=== PATIENT | male | born 1990 | race Caucasian/White ===

== ENCOUNTER 2018-04-06 09:47 | Emergency (ER) | payer MEDICARE, OTHER ==
[2018-04-06] MEDS ORDERED: SODIUM CHLORIDE 0.9% 500 ML IV STA (10:38)
[2018-04-06] MEDS ORDERED: ONDANSETRON 4 MG/2 ML VIAL IVP STA ×3 (10:38→14:20)
--- NOTE | 2018-04-06 10:40 | ED ---
General Adult HPI - General Chief complaint: Nausea/Vomiting/Diarrhea Stated complaint: nausea, vomiting Time Seen by Provider: 04/06/18 10:00 Source: patient, RN notes reviewed Mode of arrival: EMS - History of Present Illness Initial comments: This is a 27-year-old male who presents emergency Department with his father. Father does most of the history. Father states this morning he was very tired and was difficult to get him up to go to the doctor's office when he got to the doctor's office she started vomiting and the doctor wanted to be brought into the emergency department. Patient himself states she's nauseated and feels lightheaded when he stands up. Patient states he has no real abdominal pain or chest pain patient denies any difficulty breathing shortness of breath. Patient denies any fever chills. Patient denies headache patient states he is lightheaded when he tries to stand. Patient denies any recent fever chills. Dad states there is no drug use. Dad states patient typically has a couple beers every day. She denies any recent injury or trauma. - Related Data Home Medications Medication Instructions Recorded Confirmed LORazepam [Ativan] 0.5 mg PO HS 04/06/18 04/06/18 [place] Carbonate 300 mg PO HS 04/06/18 04/06/18 lamoTRIgine [LaMICtal] 300 mg PO BID 04/06/18 04/06/18 levETIRAcetam [Keppra] See Taper PO DIRECTED 04/06/18 04/06/18 Previous Rx's Medication Instructions Recorded Escitalopram [Lexapro] 20 mg PO DAILY 28 Days tab 09/01/16 OXcarbazepine [Trileptal] 450 mg PO BID 28 Days tab 09/01/16 Allergies Allergy/AdvReac Type Severity Reaction Status Date / Time No Known Allergies Allergy Verified 04/06/18 10:26 Review of Systems ROS Statement: Those systems with pertinent positive or pertinent negative responses have been documented in the HPI. ROS Other: All systems not noted in ROS Statement are negative. Past Medical History Past Medical History: Seizure Disorder Additional Past Medical History / Comment(s): Have not had a seizure in 14 years , reported by patient History of Any Multi-Drug Resistant Organisms: None Reported Additional Past Surgical History / Comment(s): brain surgery 98 and 2001 Past Psychological History: Anxiety, Depression Smoking Status: Never smoker Past Alcohol Use History: Occasional Past Drug Use History: None Reported General Exam - General Exam Comments Initial Comments: GENERAL: Patient is well-developed and well-nourished. Patient is nontoxic and well- hydrated and is in no acute distress. Initially patient refused to answer any questions when I lightly sternal rubbed and he was able to answer all questions himself up in bed and follow commands ENT: Neck is soft and supple. No significant lymphadenopathy is noted. Oropharynx is clear. Moist mucous membranes. Neck has full range of motion without eliciting any pain. EYES: The sclera were anicteric and conjunctiva were pink and moist. Extraocular movements were intact and pupils were equal round and reactive to light. Eyelids were unremarkable. PULMONARY: Unlabored respirations. Good breath sounds bilaterally. No audible rales rhonchi or wheezing was noted. CARDIOVASCULAR: There is a regular rate and rhythm without any murmurs gallops or rubs. ABDOMEN: Soft and nontender with normal bowel sounds. No palpable organomegaly was noted. There is no palpable pulsatile mass. SKIN: Skin is clear with no lesions or rashes and otherwise unremarkable. NEUROLOGIC: Patient is alert and oriented x3. Cranial nerves II through XII are grossly intact. Motor and sensory are also intact. Normal speech, volume and content. Symmetrical smile. MUSCULOSKELETAL: Normal extremities with adequate strength and full range of motion. No lower extremity swelling or edema. No calf tenderness. LYMPHATICS: No significant lymphadenopathy is noted PSYCHIATRIC: Difficult to assess since patient does very little talking. Course Vital Signs 04/06/18 04/06/18 09:49 13:35 Temperature 98.6 F Pulse Rate 97 69 Respiratory 20 18 Rate Blood Pressure 150/74 119/60 O2 Sat by Pulse 98 96 Oximetry Medical Decision Making - Medical Decision Making EKG shows normal sinus rhythm at 80 bpm [place] interval 242 QRS is 94 QT interval 352 QTC is 425. Patient's EKG shows no ST segment elevation. Patient had no vomiting while in the emergency department. But was again feeling nauseous I gave Zofran. Dad states he did take the patient to follow- up with Dr. Babs Swift take those medications to make sure he is taking it because she does not believe he is taking them regularly. - Lab Data Result diagrams: 04/06/18 10:05 04/06/18 10:41 Lab Results 04/06/18 04/06/18 04/06/18 Range/Units 10:05 10:41 13:10 WBC 8.9 (3.8-10.6) k/uL RBC 5.05 (4.30-5.90) m/uL Hgb 14.4 (13.0-17.5) gm/dL Hct 42.1 (39.0-53.0) % MCV 83.3 (80.0-100.0) fL MCH 28.4 (25.0-35.0) pg MCHC 34.2 (31.0-37.0) g/dL RDW 13.1 (11.5-15.5) % Plt Count 301 (150-450) k/uL Neutrophils % 80 % Lymphocytes % 13 % Monocytes % 6 % Eosinophils % 0 % Basophils % 0 % Neutrophils # 7.1 (1.3-7.7) k/uL Lymphocytes # 1.1 (1.0-4.8) k/uL Monocytes # 0.5 (0-1.0) k/uL Eosinophils # 0.0 (0-0.7) k/uL Basophils # 0.0 (0-0.2) k/uL Sodium 143 (137-145) mmol/L Potassium 3.9 (3.5-5.1) mmol/L Chloride 106 (98-107) mmol/L Carbon Dioxide 26 (22-30) mmol/L Anion Gap 11 mmol/L BUN 10 (9-20) mg/dL Creatinine 1.20 (0.66-1.25) mg/dL Est GFR (CKD-EPI)AfAm >90 (>60 ml/min/1.73 sqM) Est GFR (CKD-EPI)NonAf 81 (>60 ml/min/1.73 sqM) Glucose 117 H (74-99) mg/dL Calcium 9.7 (8.4-10.2) mg/dL Total Bilirubin 0.5 (0.2-1.3) mg/dL AST 21 (17-59) U/L ALT 21 (21-72) U/L Alkaline Phosphatase 84 (38-126) U/L Total Protein 6.7 (6.3-8.2) g/dL Albumin 4.4 (3.5-5.0) g/dL Amylase 34 (30-110) U/L Lipase 55 (23-300) U/L Urine Opiates Screen Not Detected (NotDetected) Ur Oxycodone Screen Not Detected (NotDetected) Urine Methadone Screen Not Detected (NotDetected) Ur Propoxyphene Screen Not Detected (NotDetected) Ur Barbiturates Screen Not Detected (NotDetected) U Tricyclic Antidepress Not Detected (NotDetected) Ur Phencyclidine Scrn Not Detected (NotDetected) Ur Amphetamines Screen Not Detected (NotDetected) U Methamphetamines Scrn Not Detected (NotDetected) U Benzodiazepines Scrn Detected H (NotDetected) [place] 0.3 mmol/L Urine Cocaine Screen Not Detected (NotDetected) U Marijuana (THC) Screen Not Detected (NotDetected) Disposition Clinical Impression: Acute vomiting Disposition: HOME SELF-CARE Condition: Good Instructions: Acute Nausea and Vomiting (ED) Is patient prescribed a controlled substance at d/c from ED?: No Referrals: Armen Wray MD [Primary Care Provider] - 1-2 days Time of Disposition: 14:21
[2018-04-06 10:54] LABS: Basophils % (A) 0 %; Eosinophils % (A) 0 %; HCT 42.1 % (39.0-53.0); HGB 14.4 gm/dL (13.0-17.5); Lymphocytes # (A) 1.1 k/uL (1.0-4.8); Lymphocytes % (A) 13 %; MCH 28.4 pg (25.0-35.0); MCHC 34.2 g/dL (31.0-37.0); MCV 83.3 fL (80.0-100.0); Mean Platelet Volume 6.9; Monocytes # (A) 0.5 k/uL (0-1.0); Monocytes % (A) 6 %; Neutrophils # (A) 7.1 k/uL (1.3-7.7); Neutrophils % (A) 80 %; Platelet Count 301 k/uL (150-450); RBC 5.05 m/uL (4.30-5.90); RDW 13.1 % (11.5-15.5); WBC 8.9 k/uL (3.8-10.6)
[2018-04-06 11:05] LABS: ALT 21 U/L (21-72); AST 21 U/L (17-59); Albumin 4.4 g/dL (3.5-5.0); Alkaline Phosphatase 84 U/L (38-126); Amylase 34 U/L (30-110); Anion Gap 11 mmol/L; Blood Urea Nitrogen 10 mg/dL (9-20); Calcium 9.7 mg/dL (8.4-10.2); Carbon Dioxide 26 mmol/L (22-30); Chloride 106 mmol/L (98-107); Glucose 117 mg/dL (74-99); Lipase 55 U/L (23-300); Potassium 3.9 mmol/L (3.5-5.1); Sodium 143 mmol/L (137-145); Total Bilirubin 0.5 mg/dL (0.2-1.3); Total Protein 6.7 g/dL (6.3-8.2)
[2018-04-06 11:06] LABS: Lithium 0.3 mmol/L
[2018-04-06 13:36] VITALS: RESP 18
[2018-04-06 13:48] LABS: Amphetamine Screen,Urine Not Detected (NotDetected); Barbiturate Screen,Urine Not Detected (NotDetected); Benzodiazepines Screen,Urine Detected (NotDetected); Cocaine Screen,Urine Not Detected (NotDetected); Methadone Screen, Urine Not Detected (NotDetected); Opiate Screen,Urine Not Detected (NotDetected); Oxycodone Screen, Urine Not Detected (NotDetected); Phencyclidine Screen,Urine Not Detected (NotDetected); Tricyclic Antidepressant,Urine Not Detected (NotDetected); Urn Cannabinoid Scrn Not Detected (NotDetected)
[2018-04-06] MEDS ORDERED: ONDANSETRON 4 MG ODT STARTER PACK 2 TAB BTL PO STA (14:20)
[2018-04-06 15:11] VITALS: BP 125/65; PULSE 87; TEMP 98.7
== END 2018-04-06 15:10 | disposition home or self-care (01) ==
LOC: EC 09:47
DX: R11.2 Nausea with vomiting, unspecified (principal); R42 Dizziness and giddiness; R53.83 Other fatigue; G40.909 Epilepsy, unspecified, not intractable, without status epilepticus; F32.9 Major depressive disorder, single episode, unspecified; F41.9 Anxiety disorder, unspecified; Z79.899 Other long term (current) drug therapy; Z53.8 Procedure and treatment not carried out for other reasons
CPT/HCPCS: 36415; 80053; 80178; 80306; 82150; 83690; 85025; 93005; 96374; 96376; 99284

== ENCOUNTER → 2018-07-27 | Outpatient (CLI) | payer MEDICARE, OTHER ==
--- NOTE | 2018-07-27 16:13 | MR ---
EXAMINATION TYPE: MR brain wo/w con DATE OF EXAM: 07/27/2018 COMPARISON: 06/16/2009 HISTORY: Unspecified convulsions history of surgery CONTRAST: Performed utilizing 9 mL intravenous Gadavist gadolinium contrast. TECHNIQUE: Multiplanar, multiecho imaging on a 3.0 Abby magnet is performed through the brain. Stud y is performed within 24 hours of arrival to the hospital. The craniovertebral junction is normal. The pituitary is normal. Diffusion-weighted imaging is performed. No abnormal hyperintensity is present to suggest an acute i ntracranial infarct or acute ischemic change. There is some periventricular white matter change on the left. Deep white matter hyperintensity is pr esent on the right. There is been resection of the anterior right frontal lobe. Encephalomalacia nikia g the parietal temporal lobes is evident. There is ex vacuo effect on the right lateral ventricle. No subfalcine herniation or midline shift is evident. These chronic changes are stable from 05/27/2009. Left lateral ventricle appears normal. No temporal horn dilatation is in the right lateral is enlarge d with ex vacuo effect the right temporal horn. Third ventricle appears midline. Fourth ventricle is midline. Note is made of some atrophy of the right cerebral peduncle. Following the intravenous administration of contrast, suspicious enhancement is not identified. No koo spicious enhancement along the resection margins are evident. IMPRESSIONS: 1. Chronic stable postsurgical changes in the right calvarium, right frontal parietal and temporal lo bes, stable from 2008. 2. White matter changes are chronic. 3. No suspicious masses.
== END | disposition home or self-care (01) ==
LOC: RADMRIMAIN 11:47
PROVIDERS: ATTEND Nurse Practitioner Acute Care
DX: R90.82 White matter disease, unspecified (principal); Z98.890 Other specified postprocedural states
CPT/HCPCS: 70553; A9585

== ENCOUNTER 2024-02-09 15:16 | Emergency (ER) | payer MEDICARE, OTHER ==
[2024-02-09 16:45] VITALS: TEMP 99
--- NOTE | 2024-02-09 16:56 | ED ---
Anxiety HPI - General Source: patient, RN notes reviewed Mode of arrival: wheelchair <Leigh Thakkar - Last Filed: 02/09/24 18:50> <Lyssa Dubon - Last Filed: 02/10/24 09:09> - General Chief Complaint: Anxiety Stated Complaint: anxiety Time Seen by Provider: 02/09/24 16:30 - History of Present Illness Initial Comments: 33-year-old male with history of anxiety and epilepsy presenting to the ER for anxiety. States he feels he may have had a seizure at home earlier. States he was outside in his backyard and suddenly had an episode where he was "shaking" and fell, however reports family member caught him before he hit the ground. Denies losing consciousness. Did not hit his head. States since this occurred he is feeling a little anxious and feels this may have been a panic attack but wants to make sure that all his labs are normal. States he feels that he is dehydrated despite drinking a large amount of water. He admits mild headache as well. He has a history of epilepsy and is adherent to his medications. States he has not had a seizure in 14 years. (Leigh Thakkar) - Related Data Home Medications: Home Medications Medication Instructions Recorded Confirmed LORazepam [Ativan] 0.5 mg PO HS 04/06/18 04/06/18 Glenvil Carbonate 300 mg PO HS 04/06/18 04/06/18 lamoTRIgine [LaMICtal] 300 mg PO BID 04/06/18 04/06/18 levETIRAcetam [Keppra] See Taper PO DIRECTED 04/06/18 04/06/18 Previous Rx's Medication Instructions Recorded Escitalopram [Lexapro] 20 mg PO DAILY 28 Days tab 09/01/16 OXcarbazepine [Trileptal] 450 mg PO BID 28 Days tab 09/01/16 Allergies/Adverse Reactions: Allergies Allergy/AdvReac Type Severity Reaction Status Date / Time No Known Allergies Allergy Verified 02/09/24 15:36 Review of Systems ROS Other: All systems not noted in ROS Statement are negative. <Leigh Thakkar - Last Filed: 02/09/24 18:50> ROS Other: All systems not noted in ROS Statement are negative. <Lyssa Dubon - Last Filed: 02/10/24 09:09> ROS Statement: Those systems with pertinent positive or pertinent negative responses have been documented in the HPI. Past Medical History Past Medical History: Seizure Disorder Additional Past Medical History / Comment(s): Have not had a seizure in 14 years, reported by patient History of Any Multi-Drug Resistant Organisms: None Reported Additional Past Surgical History / Comment(s): brain surgery 98 and 2001 Past Psychological History: Anxiety, Depression Smoking Status: Never smoker Past Alcohol Use History: Occasional Past Drug Use History: None Reported <Leigh Thakkar - Last Filed: 02/09/24 18:50> General Exam Limitations: no limitations General appearance: alert, in no apparent distress Head exam: Present: atraumatic, normocephalic, normal inspection Eye exam: Present: normal appearance, PERRL, EOMI. Absent: scleral icterus, conjunctival injection, periorbital swelling ENT exam: Present: normal exam, mucous membranes moist Neck exam: Present: normal inspection. Absent: tenderness, meningismus, lymphadenopathy Respiratory exam: Present: normal lung sounds bilaterally. Absent: respiratory distress, wheezes, rales, rhonchi, stridor Cardiovascular Exam: Present: regular rate, normal rhythm, normal heart sounds. Absent: systolic murmur, diastolic murmur, rubs, gallop, clicks GI/Abdominal exam: Present: soft, normal bowel sounds. Absent: distended, tenderness, guarding, rebound, rigid Extremities exam: Present: normal inspection, full ROM, normal capillary refill. Absent: tenderness, pedal edema, joint swelling, calf tenderness Back exam: Present: normal inspection Neurological exam: Present: alert, oriented X3, CN II-XII intact Psychiatric exam: Present: normal affect, normal mood Skin exam: Present: warm, dry, intact, normal color. Absent: rash <Leigh Thakkar - Last Filed: 02/09/24 18:50> Course Vital Signs 02/09/24 02/09/24 02/09/24 15:34 16:24 17:25 Temperature 98.4 F 99.0 F Pulse Rate 95 86 79 Respiratory 20 17 17 Rate Blood Pressure 129/85 126/81 126/85 O2 Sat by Pulse 97 97 98 Oximetry 02/09/24 02/09/24 02/10/24 21:30 22:00 06:37 Temperature Pulse Rate 89 64 Respiratory 18 18 18 Rate Blood Pressure 138/95 163/98 130/84 O2 Sat by Pulse 96 97 Oximetry Medical Decision Making - Lab Data Result diagrams: 02/09/24 17:18 02/09/24 17:49 - EKG Data -: EKG Interpreted by Me <Leigh Thakkar - Last Filed: 02/09/24 18:50> - Lab Data Result diagrams: 02/09/24 17:18 02/09/24 17:49 <Lyssa Dubon - Last Filed: 02/10/24 09:09> - Medical Decision Making Was pt. sent in by a medical professional or institution (, PA, CHOIRMASTER, urgent care, hospital, or [place] [facility] facility...) When possible be specific @ -No Did you speak to anyone other than the patient for history (EMS, parent, family, police, friend...)? What history was obtained from this source @ -No Did you review nursing and triage notes (agree or disagree)? Why? @ -I reviewed and agree with nursing and triage notes Were old charts reviewed (outside hosp., previous admission, EMS record, old EKG, old radiological studies, urgent care reports/EKG's, [place] health care facility records)? Report findings @ -No old charts were reviewed Differential Diagnosis (chest pain, altered mental status, abdominal pain women, abdominal pain men, vaginal bleeding, weakness, fever, dyspnea, syncope, headache, dizziness, GI bleed, back pain, seizure, CVA, palpatations, mental health, musculoskeletal)? @ -Differential Seizure: Recurrent seizure disorder, febrile seizure, alcohol withdrawal, stimulants, meningitis, encephalitis, intercranial hemorrhage, intracranial tumor, stroke, eclampsia, thyrotoxicosis, hypocalcemia, hyponatremia, hypernatremia, hypomagn esemia, psychogenic, this is not meant to be an all-inclusive list. EKG interpreted by me (3pts min.). @ -As above X-rays interpreted by me (1pt min.). @ -None done CT interpreted by me (1pt min.). @ -None done U/S interpreted by me (1pt. min.). @ -None done What testing was considered but not performed or refused? (CT, X-rays, U/S, labs)? Why? @ -None What meds were considered but not given or refused? Why? @ -None Did you discuss the management of the patient with other professionals (glenis hurst i.e. , PA, CHOIRMASTER, lab, RT, psych nurse, secondary social studies teacher, warp hand, teacher, founder chairman and chief creative officer, registered nurse hh case manager)? Give summary @ -No Was smoking cessation discussed for >3mins.? @ -No Was critical care preformed (if so, how long)? @ -No Were there social determinants of health that impacted care today? How? (Homelessness, low income, unemployed, alcoholism, drug addiction, transportation, low edu. Level, literacy, decrease access to med. care, skilled nursing, rehab)? @ -No Was there de-escalation of care discussed even if they declined (Discuss DNR or withdrawal of care, Hospice)? DNR status @ -No What co-morbidities impacted this encounter? (DM, HTN, Smoking, COPD, CAD, Cancer, CVA, ARF, Chemo, Hep., AIDS, mental health diagnosis, sleep apnea, morbid obesity)? @ -Epilepsy, anxiety Was patient admitted / discharged? Hospital course, mention meds given and route, prescriptions, significant lab abnormalities, going to OR and other pertinent info. @ -Patient was discharged. Patient was seen and evaluated for possible seizure versus panic attack prior to arrival. Patient denies loss of consciousness but reports shaking and feeling anxious suddenly at home. Patient has a history of epilepsy but has not had a seizure in 14 years. He has not currently experiencing any symptoms. Vitals are stable. Physical examination is unremarkable. EKG is normal sinus rhythm with no ST changes. Lab work is unremarkable. Patient is given Tylenol for headache which, upon examination, patient states has resolved. Discussed with patient that examination and testing is unremarkable. Advise close follow-up with neurologist. Strict return/alarm symptoms discussed with patient and patient shows understanding and agrees with plan. Case discussed with Dr. Jensen. Patient discharged in stable condition. Undiagnosed new problem with uncertain prognosis? @ -No Drug Therapy requiring intensive monitoring for toxicity (Heparin, Nitro, Insulin, Cardizem)? @ -No Were any procedures done? @ -No Diagnosis/symptom? @ -Seizure disorder, acute anxiety Acute, or Chronic, or Acute on Chronic? @ -Acute Uncomplicated (without systemic symptoms) or Complicated (systemic symptoms)? @ -Uncomplicated Side effects of treatment? @ -No Exacerbation, Progression, or Severe Exacerbation? @ -No Poses a threat to life or bodily function? How? (Chest pain, [place], [place], pneumonia, PE, COPD, DKA, ARF, appy, cholecystitis, CVA, Diverticulitis, Homicidal, Suicidal, threat to staff... and all critical care pts) @ -No (Leigh Thakkar) Patient was evaluated by EPS. Patient stable for discharge home. He has no suicidal or homicidal ideations. Guardian is made aware and agreeable to the plan (Lyssa Dubon) - Lab Data Lab Results 02/09/24 02/09/24 02/09/24 Range/Units 17:18 17:18 17:49 WBC 8.5 (3.8-10.6) k/uL RBC 6.00 H (4.30-5.90) m/uL Hgb 16.7 (13.0-17.5) gm/dL Hct 50.1 (39.0-53.0) % MCV 83.4 (80.0-100.0) fL MCH 27.9 (25.0-35.0) pg MCHC 33.4 (31.0-37.0) g/dL RDW 13.1 (11.5-15.5) % Plt Count 250 (150-450) k/uL MPV 7.4 Neutrophils % 78 % Lymphocytes % 14 % Monocytes % 6 % Eosinophils % 1 % Basophils % 0 % Neutrophils # 6.6 (1.3-7.7) k/uL Lymphocytes # 1.2 (1.0-4.8) k/uL Monocytes # 0.5 (0-1.0) k/uL Eosinophils # 0.1 (0-0.7) k/uL Basophils # 0.0 (0-0.2) k/uL Sodium 140 (137-145) mmol/L Potassium 3.7 (3.5-5.1) mmol/L Chloride 108 H (98-107) mmol/L Carbon Dioxide 25 (22-30) mmol/L Anion Gap 7 mmol/L BUN 9 (9-20) mg/dL Creatinine 1.05 (0.66-1.25) mg/dL Est GFR (CKD-EPI)AfAm >90 (>60 ml/min/1.73 sqM) Est GFR (CKD-EPI)NonAf >90 (>60 ml/min/1.73 sqM) Glucose 87 (74-99) mg/dL Plasma Lactic Acid Sergio 1.5 (0.7-2.0) mmol/L Calcium 9.0 (8.4-10.2) mg/dL Total Bilirubin 0.5 (0.2-1.3) mg/dL AST 19 (17-59) U/L ALT 9 (4-49) U/L Alkaline Phosphatase 93 (38-126) U/L Troponin I (0.000-0.034) ng/mL Total Protein 6.4 (6.3-8.2) g/dL Albumin 4.1 (3.5-5.0) g/dL 02/09/24 Range/Units 17:49 WBC (3.8-10.6) k/uL RBC (4.30-5.90) m/uL Hgb (13.0-17.5) gm/dL Hct (39.0-53.0) % MCV (80.0-100.0) fL MCH (25.0-35.0) pg MCHC (31.0-37.0) g/dL RDW (11.5-15.5) % Plt Count (150-450) k/uL MPV Neutrophils % % Lymphocytes % % Monocytes % % Eosinophils % % Basophils % % Neutrophils # (1.3-7.7) k/uL Lymphocytes # (1.0-4.8) k/uL Monocytes # (0-1.0) k/uL Eosinophils # (0-0.7) k/uL Basophils # (0-0.2) k/uL Sodium (137-145) mmol/L Potassium (3.5-5.1) mmol/L Chloride (98-107) mmol/L Carbon Dioxide (22-30) mmol/L Anion Gap mmol/L BUN (9-20) mg/dL Creatinine (0.66-1.25) mg/dL Est GFR (CKD-EPI)AfAm (>60 ml/min/1.73 sqM) Est GFR (CKD-EPI)NonAf (>60 ml/min/1.73 sqM) Glucose (74-99) mg/dL Plasma Lactic Acid Sergio (0.7-2.0) mmol/L Calcium (8.4-10.2) mg/dL Total Bilirubin (0.2-1.3) mg/dL AST (17-59) U/L ALT (4-49) U/L Alkaline Phosphatase (38-126) U/L Troponin I <0.012 (0.000-0.034) ng/mL Total Protein (6.3-8.2) g/dL Albumin (3.5-5.0) g/dL - EKG Data EKG Comments: EKG reveals normal sinus rhythm with no ST changes. Ventricular rate 79 bpm, [place] interval 147, QRS duration 109, QT/QTc 359/394 (Leigh Thakkar) Disposition Is patient prescribed a controlled substance at d/c from ED?: No Time of Disposition: 18:41 <Leigh Thakkar - Last Filed: 02/09/24 18:50> <Lyssa Dubon - Last Filed: 02/10/24 09:09> Clinical Impression: Acute anxiety, Seizure disorder Disposition: HOME SELF-CARE Condition: Stable Instructions (If sedation given, give patient instructions): Generalized Anxiety Disorder (ED), Epilepsy (ED) Additional Instructions: Please follow-up with neurologist in 1 to 3 days. Please return to the Emergency Department if symptoms worsen or any other concerns. Referrals: Armen Wray MD [Primary Care Provider] - 1-2 days
[2024-02-09] MEDS: ACETAMINOPHEN TAB 325 MG TAB PO STA (17:23)
[2024-02-09] MEDS: SODIUM CHLORIDE 0.9% 1,000 ML IV STA (17:23)
[2024-02-09 17:27] LABS: Basophils % (A) 0 %; Eosinophils # (A) 0.1 k/uL (0-0.7); Eosinophils % (A) 1 %; HCT 50.1 % (39.0-53.0); HGB 16.7 gm/dL (13.0-17.5); Lymphocytes # (A) 1.2 k/uL (1.0-4.8); Lymphocytes % (A) 14 %; MCH 27.9 pg (25.0-35.0); MCHC 33.4 g/dL (31.0-37.0); MCV 83.4 fL (80.0-100.0); Mean Platelet Volume 7.4; Monocytes # (A) 0.5 k/uL (0-1.0); Monocytes % (A) 6 %; Neutrophils # (A) 6.6 k/uL (1.3-7.7); Neutrophils % (A) 78 %; Platelet Count 250 k/uL (150-450); RDW 13.1 % (11.5-15.5); WBC 8.5 k/uL (3.8-10.6)
[2024-02-09 18:09] LABS: ALT 9 U/L (4-49); AST 19 U/L (17-59); African American GFR (CKD) >90 (>60 ml/min/1.73 sqM); Albumin 4.1 g/dL (3.5-5.0); Alkaline Phosphatase 93 U/L (38-126); Anion Gap 7 mmol/L; Blood Urea Nitrogen 9 mg/dL (9-20); Carbon Dioxide 25 mmol/L (22-30); Chloride 108 mmol/L (98-107); Glucose 87 mg/dL (74-99); Non-African American GFR(CKD) >90 (>60 ml/min/1.73 sqM); Potassium 3.7 mmol/L (3.5-5.1); Sodium 140 mmol/L (137-145); Total Bilirubin 0.5 mg/dL (0.2-1.3); Total Protein 6.4 g/dL (6.3-8.2)
[2024-02-09 21:34] VITALS: RESP 18
[2024-02-09] MEDS: ESCITALOPRAM 20 MG TAB PO STA (23:16)
[2024-02-10 06:42] VITALS: BP 130/84; PULSE 64
== END 2024-02-10 09:27 | disposition home or self-care (01) ==
LOC: EEVIPCON 15:16 → EC 15:16
DX: F41.9 Anxiety disorder, unspecified (principal); G40.909 Epilepsy, unspecified, not intractable, without status epilepticus; Z79.899 Other long term (current) drug therapy
CPT/HCPCS: 36415; 80053; 82075; 83605; 84484; 85025; 93005; 96360; 96361; 99284